=== PATIENT | female | born 1975 | race Caucasian/White ===

== ENCOUNTER 2017-10-25 10:56 | Emergency (ER) | payer OTHER ==
[~2017-10-25] VITALS: Ht 170.1 cm; Wt 116.1 kg
[2017-10-25 10:56] VITALS: BP 146/82
[~2017-10-25 10:56] MED LIST: ATARAX25 MG PO; LOMOTIL 0.025 M1 TA1 PO; NEXIUM40 MG PO; NKHM; PREDNICOT20 MG PO; PREVACID30 M1 PO; SINGULAIR10 MG PO; SYNTHROID,LEVO25 MCG PO; SYNTHROID,LEVOTHROID PO; SYNTHROID0.05 MG; VENTOLIN 02.5 MG/3 M NEB; ZOFRAN ODT4 MG SL
[2017-10-25] MEDS ORDERED: AMOXICILLIN500 M2 PO (11:32)
[2017-10-25] MEDS ORDERED: FLONASE ALLERG9.9 ML NAS (11:32)
== END 2017-10-25 11:35 | disposition home or self-care (01) ==
LOC: ED 10:56
DX: J01.90 Acute sinusitis, unspecified (principal); F17.210 Nicotine dependence, cigarettes, uncomplicated; Z91.041 Radiographic dye allergy status; Z91.040 Latex allergy status; Z88.6 Allergy status to analgesic agent; Z79.899 Other long term (current) drug therapy

== ENCOUNTER 2018-06-10 10:47 | Emergency (ER) | payer OTHER ==
[~2018-06-10] VITALS: Ht 170.1 cm; Wt 117.9 kg
[~2018-06-10 10:47] MED LIST changes: +AMOXICILLIN500 M2 PO; +FLONASE ALLERG9.9 ML NAS
[2018-06-10 10:49] VITALS: BP 150/78
[2018-06-10] MEDS ORDERED: FLONASE ALLERG9.9 ML NAS (10:55)
[2018-06-10] MEDS ORDERED: CLARITIN10 MG PO (10:55)
[2018-06-10] MEDS ORDERED: PREDNISONE10 MG PO (10:55)
[2018-06-10] MEDS ORDERED: PROAIR HFA8.5 GM INH (10:55)
== END 2018-06-10 12:28 | disposition home or self-care (01) ==
LOC: ED 10:47
DX: B34.9 Viral infection, unspecified (principal); R03.0 Elevated blood-pressure reading, without diagnosis of hypertension; F17.200 Nicotine dependence, unspecified, uncomplicated; Z91.041 Radiographic dye allergy status; Z91.040 Latex allergy status; Z88.6 Allergy status to analgesic agent; Z79.899 Other long term (current) drug therapy

== ENCOUNTER → 2019-05-04 | Outpatient (CLI) | payer OTHER ==
[~2019-05-04] MED LIST changes: +CLARITIN10 MG PO; +PREDNISONE10 MG PO; +PROAIR HFA8.5 GM INH
--- NOTE | ~2019-05-04 | EKG ---
[place], [place] ELECTROCARDIOGRAM REPORT NAME: MADELEINE PANIAGUA UNIT #: [id number] ROOM: DOCTOR: EPIPHANY DRAFT REPORT BIRTHDATE: [birth year] [facility] Test Date: 2019-05-04 Test Time: 09:17:37 Pat Name: MADELEINE PANIAGUA Department: Room: Gender: F [employer] Systems Engineer: : [id number] Requested By: ANNE KELLY Order Number: [id number] Reading MD: Francis Richard MD Measurements Intervals [place] Rate: 68 P: 50 AR: 122 QRS: 33 QRSD: 97 T: 54 QT: 399 QTc: 425 Interpretive Statements Sinus rhythm Nonspecific ST T changes Electronically Signed On 05-04-2019 8:19:43 PST by Francis Richard MD CM:EKGRPT:ELECTROCARDIOGRAM REPORT [id number] ANNE BORGES DRAFT REPORT ANNE KELLY
== END | disposition home or self-care (01) ==
LOC: CARD 08:58
DX: Z79.899 Other long term (current) drug therapy (principal)

== ENCOUNTER 2019-12-01 23:40 | Emergency (ER) | payer OTHER ==
[~2019-12-01] VITALS: Ht 170.1 cm; Wt 127.0 kg
[2019-12-01 23:47] VITALS: BP 142/93
[2019-12-02] MEDS ORDERED: CYCLOBENZAPRINE10 MG PO (00:23)
== END 2019-12-02 01:12 | disposition home or self-care (01) ==
LOC: ED 23:40
DX: S00.93XA Contusion of unspecified part of head, initial encounter (principal); J45.909 Unspecified asthma, uncomplicated; F32.9 Major depressive disorder, single episode, unspecified; F41.9 Anxiety disorder, unspecified; K21.9 Gastro-esophageal reflux disease without esophagitis; Z88.8 Allergy status to other drugs, medicaments and biological substances; Z91.040 Latex allergy status; Z88.5 Allergy status to narcotic agent; Z79.899 Other long term (current) drug therapy; Y04.2XXA Assault by strike against or bumped into by another person, initial encounter; Y93.89 Activity, other specified; Y92.89 Other specified places as the place of occurrence of the external cause; Y99.8 Other external cause status

== ENCOUNTER → 2020-04-30 | Outpatient (CLI) | payer OTHER ==
[~2020-04-30] MED LIST changes: +CYCLOBENZAPRINE10 MG PO
== END | disposition home or self-care (01) ==
LOC: CARD 10:17
PROVIDERS: ATTEND Nurse Practitioner Family
DX: Z51.81 Encounter for therapeutic drug level monitoring (principal); Z79.899 Other long term (current) drug therapy

== ENCOUNTER 2022-06-15 08:49 | Emergency (ER) | payer OTHER ==
[~2022-06-15] VITALS: Ht 170.1 cm; Wt 122.5 kg
[2022-06-15 08:56] VITALS: BP 112/75
[2022-06-15] MEDS ORDERED: VYVANSE70 MG PO (08:58)
[2022-06-15] MEDS ORDERED: PAXIL20 M1 PO (08:58)
[2022-06-15 09:42] LABS: BASO % 0.3 % (0.0-1.0); EOS # 0.2 10*3/uL (0.0-0.4); EOS % 1.6 % (1.0-4.0); HEMATOCRIT 47.6 % (37.0-47.0); LYMPH # 0.9 10*3/uL (1.3-4.4); LYMPH % 7.8 % (27.0-41.0); MEAN CELL VOLUME 97.1 fl (81.0-99.0); MEAN CORPUSCULAR HGB 32.2 pg (27.0-31.0); MEAN CORPUSCULAR HGB CONC 33.2 g/dl (33.0-37.0); MONO # 0.6 10*3/uL (0.1-1.0); MONO % 5.2 % (3.0-9.0); NEUT % 84.8 % (47.0-73.0); PLATELET COUNT AUTOMATED 268 10*3/uL (130-400); WHITE BLOOD COUNT 11.7 10*3/uL (4.8-10.8)
[2022-06-15 09:58] LABS: ALKALINE PHOSPHATASE 97 U/L (46-116); BUN 13 mg/dl (9-23); CHLORIDE 104 mmol/L (98-107); LIPASE 31 U/L (12-53); POTASSIUM 4.1 mmol/L (3.4-5.1); SGPT/ALT 14 U/L (10-49); TOTAL PROTEIN 7.8 gm/dL (6.0-8.0)
[2022-06-15] MEDS ORDERED: PREDNISONE50 MG PO (16:43)
[2022-06-15] MEDS ORDERED: VIBRA-TAB100 MG PO (16:43)
== END 2022-06-15 17:00 | disposition home or self-care (01) ==
LOC: ED 08:49
PROVIDERS: Emergency Medicine
DX: J20.9 Acute bronchitis, unspecified (principal); J45.909 Unspecified asthma, uncomplicated; R09.1 Pleurisy; Z91.041 Radiographic dye allergy status; Z91.040 Latex allergy status; Z88.5 Allergy status to narcotic agent; Z90.711 Acquired absence of uterus with remaining cervical stump; Z90.49 Acquired absence of other specified parts of digestive tract; Z98.51 Tubal ligation status; Z98.890 Other specified postprocedural states; Z20.822 Contact with and (suspected) exposure to COVID-19; K21.9 Gastro-esophageal reflux disease without esophagitis

== ENCOUNTER → 2022-09-16 | Outpatient (CLI) | payer OTHER ==
[~2022-09-16] MED LIST changes: +PAXIL20 M1 PO; +PREDNISONE50 MG PO; +VIBRA-TAB100 MG PO; +VYVANSE70 MG PO
== END | disposition home or self-care (01) ==
LOC: MAMMO 10:58
PROVIDERS: ATTEND Internal Medicine
DX: Z12.31 Encounter for screening mammogram for malignant neoplasm of breast (principal)

== ENCOUNTER 2023-01-12 16:25 | Emergency (ER) | payer OTHER ==
[~2023-01-12] VITALS: Ht 170.1 cm; Wt 122.5 kg
[2023-01-12 16:38] VITALS: BP 123/68
[2023-01-12] MEDS ORDERED: FAMOTIDINE20 M1 PO (16:44)
== END 2023-01-12 18:40 | disposition home or self-care (01) ==
LOC: ED 16:25
DX: S93.401A Sprain of unspecified ligament of right ankle, initial encounter (principal); M77.8 Other enthesopathies, not elsewhere classified; J45.909 Unspecified asthma, uncomplicated; F32.A Depression, unspecified; F41.9 Anxiety disorder, unspecified; K21.9 Gastro-esophageal reflux disease without esophagitis; Z91.041 Radiographic dye allergy status; Z91.040 Latex allergy status; Z88.5 Allergy status to narcotic agent; Z90.49 Acquired absence of other specified parts of digestive tract; Z90.711 Acquired absence of uterus with remaining cervical stump; Z98.890 Other specified postprocedural states; X58.XXXA Exposure to other specified factors, initial encounter; Y93.89 Activity, other specified; Y92.89 Other specified places as the place of occurrence of the external cause; Y99.8 Other external cause status

== ENCOUNTER 2023-08-15 15:41 | Emergency (ER) | payer OTHER ==
[~2023-08-15] VITALS: Ht 170.1 cm; Wt 119.3 kg
[~2023-08-15 15:41] MED LIST changes: +FAMOTIDINE20 M1 PO
[2023-08-15 16:25] LABS: BASO # 0.1 10*3/uL (0.0-0.1); BASO % 0.8 % (0.0-1.0); EOS # 0.3 10*3/uL (0.0-0.4); EOS % 4.9 % (1.0-4.0); HEMATOCRIT 43.1 % (37.0-47.0); LYMPH # 2.3 10*3/uL (1.3-4.4); LYMPH % 38.1 % (27.0-41.0); MEAN CELL VOLUME 96.9 fl (81.0-99.0); MEAN CORPUSCULAR HGB 30.8 pg (27.0-31.0); MEAN CORPUSCULAR HGB CONC 31.8 g/dl (33.0-37.0); MEAN PLATELET VOLUME 8.8 fl (9.6-12.3); MONO # 0.4 10*3/uL (0.1-1.0); MONO % 6.3 % (3.0-9.0); NEUT % 49.7 % (47.0-73.0); PLATELET COUNT AUTOMATED 250 10*3/uL (130-400); RED BLOOD COUNT 4.45 10*6/uL (4.10-5.10); RED CELL DISTRI WIDTH 13.5 % (0-14.5); WHITE BLOOD COUNT 6.1 10*3/uL (4.8-10.8)
[2023-08-15] MEDS ORDERED: Hydrocortisone Sodium Succin 250 MG/2 ML VIAL IV ONE (16:35)
[2023-08-15 16:43] LABS: ALKALINE PHOSPHATASE 72 U/L (46-116); BUN 8 mg/dl (9-23); CHLORIDE 110 mmol/L (98-107); LIPASE 41 U/L (12-53); POTASSIUM 3.8 mmol/L (3.4-5.1); SGPT/ALT 18 U/L (5-49)
[2023-08-15 16:58] LABS: BILIRUBIN Negative (Negative); BLOOD Negative (Negative); CLARITY Clear (Clear); COLOR Yellow (Yellow); GLUCOSE Negative (Negative); KETONE Negative (Negative); LEUKO ESTERASE Negative (Negative); NITRITE Negative (Negative); SPECIFIC GRAVITY 1.015 (1.001-1.030); UROBILINOGEN 0.2 E.U./dl (0.0-1.0)
[2023-08-15 17:04] LABS: BACTERIA TRACE; RBC 0-2 rbc/hpf (0-2); WBC 0-2 wbc/hpf (0-5)
[2023-08-15] MEDS ORDERED: Iodixanol 320 100 ML VIAL IV ONE ×2 (17:20→19:50)
[2023-08-15] MEDS ORDERED: diphenhydrAMINE hydrochloride 50 MG/ML VIAL IV ONE (19:30)
[2023-08-15] MEDS ORDERED: IOHEXOL 300 MG/ML 100 ML VIAL IV ONE (19:30)
[2023-08-15] MEDS ORDERED: Ondansetron Hydrochloride 4 MG/2 ML VIAL IV ONE (22:00)
[2023-08-15] MEDS ORDERED: MORPHINE Sulfate 2 MG/ML SYR IV ONE (22:00)
[2023-08-15 22:10] VITALS: BP 136/71
[2023-08-16] MEDS ORDERED: MORPHINE Sulfate 2 MG/ML SYR IV ONE (00:30)
== END 2023-08-16 01:00 | disposition short-term general hospital (02) ==
LOC: ED 15:41
PROVIDERS: Nurse Practitioner
DX: R19.02 Left upper quadrant abdominal swelling, mass and lump (principal); R10.12 Left upper quadrant pain; R60.0 Localized edema; R10.32 Left lower quadrant pain; Z91.041 Radiographic dye allergy status; Z91.040 Latex allergy status; Z88.5 Allergy status to narcotic agent; Z79.899 Other long term (current) drug therapy; Z79.2 Long term (current) use of antibiotics; Z90.711 Acquired absence of uterus with remaining cervical stump; Z98.890 Other specified postprocedural states; Z90.49 Acquired absence of other specified parts of digestive tract

== ENCOUNTER 2023-10-26 22:24 | Emergency (ER) | payer OTHER ==
[~2023-10-26] VITALS: Wt 117.9 kg
[2023-10-26 23:19] VITALS: BP 116/64
[2023-10-27 01:14] LABS: BASO # 0.1 10*3/uL (0.0-0.1); BASO % 1.4 % (0.0-1.0); EOS # 0.9 10*3/uL (0.0-0.4); EOS % 9.2 % (1.0-4.0); HEMATOCRIT 35.4 % (37.0-47.0); LYMPH # 3.3 10*3/uL (1.3-4.4); MEAN CELL VOLUME 101.4 fl (81.0-99.0); MEAN CORPUSCULAR HGB 32.7 pg (27.0-31.0); MEAN CORPUSCULAR HGB CONC 32.2 g/dl (33.0-37.0); MEAN PLATELET VOLUME 8.6 fl (9.6-12.3); MONO % 10.1 % (3.0-9.0); NEUT # 4.8 10*3/uL (2.3-7.9); NEUT % 46.9 % (47.0-73.0); PLATELET COUNT AUTOMATED 836 10*3/uL (130-400); RED BLOOD COUNT 3.49 10*6/uL (4.10-5.10); WHITE BLOOD COUNT 10.3 10*3/uL (4.8-10.8)
[2023-10-27 01:35] LABS: ALKALINE PHOSPHATASE 75 U/L (46-116); BUN 12 mg/dl (9-23); CHLORIDE 108 mmol/L (98-107); POTASSIUM 4.1 mmol/L (3.4-5.1); SGPT/ALT 21 U/L (5-49); TOTAL PROTEIN 5.9 gm/dL (6.0-8.0)
[2023-10-27] MEDS ORDERED: Bacitracin Zinc 14 GM TUBE T ONE (04:20)
[2023-10-27] MEDS ORDERED: SEPTDS PO (04:27)
== END 2023-10-27 05:12 | disposition home or self-care (01) ==
LOC: ED 22:24
PROVIDERS: Internal Medicine
DX: T81.49XA Infection following a procedure, other surgical site, initial encounter (principal); Z91.041 Radiographic dye allergy status; Z91.040 Latex allergy status; Z88.5 Allergy status to narcotic agent; Z79.899 Other long term (current) drug therapy; Z79.2 Long term (current) use of antibiotics; Z90.711 Acquired absence of uterus with remaining cervical stump; Z90.49 Acquired absence of other specified parts of digestive tract; Z98.890 Other specified postprocedural states; Z90.89 Acquired absence of other organs; Y83.8 Other surgical procedures as the cause of abnormal reaction of the patient, or of later complication, without mention of misadventure at the time of the procedure; Y92.89 Other specified places as the place of occurrence of the external cause